=== PATIENT | female | born 1990 | race Two or more races ===

== ENCOUNTER → 2019-02-18 | Outpatient (CLI) | payer OTHER | END | disposition home or self-care (01) | LOC: RX STUDY 10:45 | DX: K30 Functional dyspepsia (principal); R11.0 Nausea; R19.5 Other fecal abnormalities ==

== ENCOUNTER 2022-06-13 11:50 | Outpatient (CLI) | payer OTHER | END 2022-06-13 11:52 | disposition home or self-care (01) | LOC: SONOGRAMA 11:50 | PROVIDERS: ATTEND Pathology Anatomic Pathology & Clinical Pathology | DX: C73 Malignant neoplasm of thyroid gland (principal); E04.2 Nontoxic multinodular goiter ==

== ENCOUNTER 2022-08-15 13:19 | Outpatient (CLI) | payer OTHER | END 2022-08-15 13:20 | disposition home or self-care (01) | LOC: NUCLEAR 13:19 | PROVIDERS: ATTEND Internal Medicine Sports Medicine | DX: C73 Malignant neoplasm of thyroid gland (principal); E89.0 Postprocedural hypothyroidism ==

== ENCOUNTER 2022-08-19 12:51 | Outpatient (CLI) | payer OTHER | END 2022-08-19 12:52 | disposition home or self-care (01) | LOC: NUCLEAR 12:51 | PROVIDERS: ATTEND Internal Medicine Sports Medicine | DX: C73 Malignant neoplasm of thyroid gland (principal); E89.0 Postprocedural hypothyroidism ==

== ENCOUNTER 2023-09-29 10:55 | Outpatient (CLI) | payer OTHER | END 2023-09-29 10:56 | disposition home or self-care (01) | LOC: NUCLEAR 10:55 | PROVIDERS: ATTEND Internal Medicine Sports Medicine | DX: C73 Malignant neoplasm of thyroid gland (principal); E89.0 Postprocedural hypothyroidism ==